=== PATIENT | male | born 1955 | race Caucasian/White ===

== ENCOUNTER 2017-08-06 15:02 | Inpatient (IN) | payer MEDICAID ==
[2017-08-06] MEDS ORDERED: Lidocaine 1% 20 ML MDV INJECT ONE (15:15)
--- NOTE | 2017-08-06 15:17 | EDM.PDOC ---
ED HPI GENERAL MEDICAL PROBLEM - General Stated Complaint: ABCESS ON BUTT Time Seen by Provider: 08/06/17 15:15 Source of Information: Reports: Patient History Limitations: Reports: No Limitations - History of Present Illness INITIAL COMMENTS - FREE TEXT/NARRATIVE: HISTORY AND PHYSICAL: History of present illness: Patient is a 61-year-old male who presents to the emergency room with complaints of an abscess to the left gluteal. He states he has noticed this for about a week and has seen a provider in [place]. At the initial visit they tried to drain the abscess site, which he states they "were unable to get the cyst". He was admitted overnight and put on IV antibiotics. He was discharged the next day with oral antibiotics. Today he went to a walk-in clinic as the site was more painful, they referred him to our emergency department for further care. On getting changed into a gown, he bent down and opened the abscess which is now draining bloody fluid. Review of systems: As per history of present illness and below otherwise all systems reviewed and negative. Past medical history: As per history of present illness and as reviewed below otherwise noncontributory. Surgical history: As per history of present illness and as reviewed below otherwise noncontributory. Social history: No reported history of drug or alcohol abuse. Family history: As per history of present illness and as reviewed below otherwise noncontributory. Physical exam: Gen.: Well-developed and well-nourished 61-year-old male. Alert and oriented. Appears nontoxic and in no acute distress. HEENT: Atraumatic, normocephalic, pupils reactive, negative for conjunctival pallor or scleral icterus, mucous membranes moist, throat clear, neck supple, nontender, trachea midline. Lungs: Clear to auscultation, breath sounds equal bilaterally, chest nontender. Heart: S1S2, regular, negative for clicks, rubs, or JVD. Abdomen: Soft, nondistended, nontender. Negative for masses or hepatosplenomegaly. Negative for costovertebral tenderness. Pelvis: Stable nontender. Genitourinary: Deferred. Rectal: Deferred. Skin: Abscess noted to medial lower left gluteal. There is an area approximately 2 cm its covered with Steri-Strips, patient reports that is where they did the initial I&D. There is an open area of skin approximately 4 fingerbreadths from the rectum which is draining serosanguineous fluid. There is erythema noted, firm to touch, indurated -nonfluctuant. Extremities: Atraumatic, negative for cords or calf pain. Neurovascular unremarkable. Neuro: Awake, alert, oriented. Cranial nerves II through XII unremarkable. Cerebellum unremarkable. Motor and sensory unremarkable throughout. Exam nonfocal. Diagnostics: CBC, CMP, blood cultures Therapeutics: IV fluid, Toradol Impression: Cellulitis with induration vs abscess post I&D Plan: Admit as an inpatient per Dr Santiago Definitive disposition and diagnosis as appropriate pending reevaluation and review of above. Duration: Day(s): Location: Reports: Other (Glute) Left Perineal Area Pain Score (Numeric/FACES): 0 - Related Data Allergies Allergy/AdvReac Type Severity Reaction Status Date / Time No Known Allergies Allergy Verified 08/06/17 15:42 Home Meds: Home Meds Sulfamethoxazole/Trimethoprim [Bactrim Ds Tablet] 1 each PO BID 8 Days #16 tablet 08/08/17 [Rx] ED ROS GENERAL - Review of Systems Review Of Systems: ROS reveals no pertinent complaints other than HPI. ED EXAM, SKIN/RASH Exam: See Below (See dictation) Course - Vital Signs Last Recorded V/S: Last Vital Signs Temp 97.3 F 08/08/17 12:00 Pulse 69 08/08/17 12:00 Resp 18 08/08/17 12:00 BP 120/70 08/08/17 12:00 Pulse Ox 99 08/08/17 12:00 - Orders/Labs/Meds Labs: Laboratory Tests 08/06/17 08/06/17 Range/Units 15:30 15:30 WBC 8.70 (4.0-11.0) K/uL RBC 5.00 (4.50-5.90) M/uL Hgb 15.9 (13.0-17.0) g/dL Hct 47.2 (38.0-50.0) % MCV 94.4 (80.0-98.0) fL MCH 31.8 (27.0-32.0) pg MCHC 33.7 (31.0-37.0) g/dL RDW Std Deviation 46.4 (28.0-62.0) fl RDW Coeff of Lawanda 13 (11.0-15.0) % Plt Count 169 (150-400) K/uL MPV 9.90 (7.40-12.00) fL Neut % (Auto) 77.3 (48.0-80.0) % Lymph % (Auto) 13.4 L (16.0-40.0) % [place] % (Auto) 8.4 (0.0-15.0) % Eos % (Auto) 0.7 (0.0-7.0) % Baso % (Auto) 0.2 (0.0-1.5) % Neut # (Auto) 6.7 H (1.4-5.7) K/uL Lymph # (Auto) 1.2 (0.6-2.4) K/uL [place] # (Auto) 0.7 (0.0-0.8) K/uL Eos # (Auto) 0.1 (0.0-0.7) K/uL Baso # (Auto) 0.0 (0.0-0.1) K/uL Nucleated RBC % 0.0 /100WBC Nucleated RBCs # 0 K/uL Sodium 137 (136-146) mmol/L Potassium 4.4 (3.5-5.1) mmol/L Chloride 107 (98-110) mmol/L Carbon Dioxide 22 (21-31) mmol/L BUN 10 (6.0-23.0) mg/dL Creatinine 0.8 (0.6-1.5) mg/dL Est Cr Clr Drug Dosing 98.28 mL/min Estimated GFR (MDRD) > 60.0 ml/min Glucose 74 (60-110) mg/dL Calcium 9.2 (8.8-10.8) mg/dL Total Bilirubin 0.6 (0.1-1.5) mg/dL AST 17 (5-40) IU/L ALT 11 (8-54) IU/L Alkaline Phosphatase 59 (40-150) Total Protein 7.2 (6.0-8.0) g/dL Albumin 4.1 (3.4-4.8) g/dL Globulin 3.1 (2.0-3.5) g/dL Albumin/Globulin Ratio 1.3 (1.3-2.8) Meds: Medications Discontinued Medications Generic Name Dose Route Start Last Admin Trade Name Freq PRN Reason Stop Dose Admin Bupivacaine HCl Confirm 08/07/17 16:39 Sensorcaine-Mpf 0.5% Administered 08/07/17 16:40 Dose 10 ml .ROUTE .STK-MED ONE Bupivacaine HCl Confirm 08/07/17 18:11 Sensorcaine-Mpf 0.5% Administered 08/07/17 18:12 Dose 10 ml .ROUTE .STK-MED ONE Ephedrine Sulfate Confirm 08/07/17 17:11 Ephedrine Sulfate Administered 08/07/17 17:12 Dose 50 mg .ROUTE .STK-MED ONE Fentanyl 50 mcg 08/07/17 11:14 Sublimaze IVPUSH 08/08/17 11:14 Q5M PRN Pain (severe 7-10) Fentanyl Confirm 08/07/17 16:07 Sublimaze Administered 08/07/17 16:08 Dose 250 mcg .ROUTE .STK-MED ONE Glycopyrrolate Confirm 08/07/17 17:22 Administered 08/07/17 17:23 Dose 1 mg .ROUTE .STK-MED ONE Sodium Chloride 1,000 mls @ 125 mls/hr 08/06/17 15:29 08/06/17 15:45 Normal Saline IV 08/06/17 23:28 125 mls/hr STAT ONE Administration Ceftriaxone Sodium/Dextrose 2 50 mls @ 100 mls/hr 08/06/17 19:00 08/07/17 18: 53 gm/ Premix IV 100 mls/hr Q24H [facility] Administration Vancomycin HCl 1 gm/ Sodium 250 mls @ 166 mls/hr 08/06/17 20:00 08/08/17 13: 41 Chloride IV Not Given Q8H [facility] Sodium Chloride 1,000 mls @ 125 mls/hr 08/07/17 16:15 08/08/17 04:00 Normal Saline IV 125 mls/hr ASDIRECTED [facility] Administration Iopamidol 100 ml 08/06/17 19:11 Isovue-370 (76%) IV 08/06/17 19:12 .STK-MED ONE Ketorolac Tromethamine 30 mg 08/06/17 15:29 08/06/17 16:45 Toradol IVPUSH 08/06/17 15:30 30 mg ONETIME ONE Administration Lidocaine Confirm 08/07/17 16:07 Xylocaine-Mpf 2% Administered 08/07/17 16:08 Dose 5 ml .ROUTE .STK-MED ONE Lidocaine HCl 20 ml 08/06/17 15:15 08/06/17 16:47 Xylocaine 1% INJECT 08/06/17 15:16 Not Given ONETIME ONE Midazolam HCl Confirm 08/07/17 16:07 Versed 1 Mg/Ml Administered 08/07/17 16:08 Dose 2 mg .ROUTE .STK-MED ONE Ondansetron HCl Confirm 08/07/17 16:07 Zofran Administered 08/07/17 16:08 Dose 4 mg .ROUTE .STK-MED ONE Propofol Confirm 08/07/17 16:07 Diprivan 20 Ml Administered 08/07/17 16:08 Dose 200 mg .ROUTE .STK-MED ONE Rocuronium [place] Confirm 08/07/17 16:07 Zemuron Administered 08/07/17 16:08 Dose 100 mg .ROUTE .STK-MED ONE Succinylcholine Chloride Confirm 08/07/17 16:07 Succinylcholine In Ns Pf Administered 08/07/17 16:08 Dose 200 mg .ROUTE .STK-MED ONE Vancomycin HCl 1 dose 08/06/17 18:15 Pharmacy To Dose - Vancomycin .XX [facility]IRECTED [facility] Dep[facility] - Departure Time of Disposition: 18:00 Disposition: Admitted As Inpatient 65 Clinical Impression: Cellulitis Qualifiers: Site of cellulitis: buttock Qualified Code(s): L03.317 - Cellulitis of buttock - Discharge Information
[2017-08-06] MEDS ORDERED: Ketorolac 30 MG/ML SDV IVPUSH ONE (15:29)
[2017-08-06] MEDS ORDERED: Sodium Chloride 0.9% 1,000 ML IV ONE (15:29)
[2017-08-06 16:14] LABS: CHLORIDE,CL 107 mmol/L (98-110); SODIUM,NA 137 mmol/L (136-146)
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
[2017-08-06] MEDS: cefTRIAXone 2 GM in Premix Bag 1 BAG IV SCH (18:43)
[2017-08-06] MEDS ORDERED: Iopamidol 755 Mg/ML 100 ML Bottle IV ONE (19:11)
[2017-08-07 06:22] LABS: CHLORIDE,CL 112 mmol/L (98-110); SODIUM,NA 141 mmol/L (136-146)
--- NOTE | 2017-08-07 09:21 | PCM.PN ---
- General Info Date of Service: 08/07/17 Admission Dx/Problem (Free Text): Admission Diagnosis/Problem Admission Diagnosis/Problem Cellulitis and abscess of buttock Subjective Update: No overnight events. Patient has mild pain and tenderness at site but pain is controlled without medication. No fever, chills, nausea, vomiting, abdominal pain, diarrhea or bloody stool. Functional Status: Reports: Pain Controlled, Tolerating Diet, Ambulating, Urinating - Review of Systems General: Reports: No Symptoms HEENT: Reports: No Symptoms Pulmonary: Reports: No Symptoms Cardiovascular: Reports: No Symptoms Gastrointestinal: Reports: No Symptoms Genitourinary: Reports: No Symptoms Musculoskeletal: Reports: No Symptoms Skin: Reports: No Symptoms Neurological: Reports: No Symptoms Psychiatric: Reports: No Symptoms - Patient Data Vitals - Most Recent: Last Vital Signs Temp 36.5 C 08/07/17 08:00 Pulse 68 08/07/17 08:00 Resp 20 08/07/17 08:00 BP 122/84 08/07/17 08:00 Pulse Ox 96 08/07/17 08:00 Weight - Most Recent: 72.575 kg I&O - Last 24 Hours: Intake & Output 08/06/17 08/07/17 08/07/17 22:59 06:59 14:59 Intake Total 300 1350 1000 Output Total 950 Balance 158 034 [id number] Lab Results Last 24 Hours: Laboratory Results - last 24 hr 08/07/17 08/07/17 Range/Units 05:25 05:25 WBC 5.47 (4.0-11.0) K/uL RBC 4.55 (4.50-5.90) M/uL Hgb 14.1 (13.0-17.0) g/dL Hct 43.2 (38.0-50.0) % MCV 94.9 (80.0-98.0) fL MCH 31.0 (27.0-32.0) pg MCHC 32.6 (31.0-37.0) g/dL RDW Std Deviation 47.3 (28.0-62.0) fl RDW Coeff of Lawanda 14 (11.0-15.0) % Plt Count 153 (150-400) K/uL MPV 10.00 (7.40-12.00) fL Neut % (Auto) 51.7 (48.0-80.0) % Lymph % (Auto) 33.3 (16.0-40.0) % [place] % (Auto) 10.8 (0.0-15.0) % Eos % (Auto) 3.7 (0.0-7.0) % Baso % (Auto) 0.5 (0.0-1.5) % Neut # (Auto) 2.8 (1.4-5.7) K/uL Lymph # (Auto) 1.8 (0.6-2.4) K/uL [place] # (Auto) 0.6 (0.0-0.8) K/uL Eos # (Auto) 0.2 (0.0-0.7) K/uL Baso # (Auto) 0.0 (0.0-0.1) K/uL Nucleated RBC % 0.0 /100WBC Nucleated RBCs # 0 K/uL Sodium 141 (136-146) mmol/L Potassium 4.5 (3.5-5.1) mmol/L Chloride 112 H (98-110) mmol/L Carbon Dioxide 24 (21-31) mmol/L BUN 10 (6.0-23.0) mg/dL Creatinine 0.7 (0.6-1.5) mg/dL Est Cr Clr Drug Dosing 112.32 mL/min Estimated GFR (MDRD) > 60.0 ml/min Glucose 70 (60-110) mg/dL Calcium 8.0 L (8.8-10.8) mg/dL Total Bilirubin 0.4 (0.1-1.5) mg/dL AST 16 (5-40) IU/L ALT 10 (8-54) IU/L Alkaline Phosphatase 40 (40-150) Total Protein 5.6 L (6.0-8.0) g/dL Albumin 3.1 L (3.4-4.8) g/dL Globulin 2.5 (2.0-3.5) g/dL Albumin/Globulin Ratio 1.2 L (1.3-2.8) Med Orders - Current: Current Medications Ceftriaxone Sodium/Dextrose 2 (gm/ Premix) 50 mls @ 100 mls/hr IV Q24H [facility] Last Admin: 08/06/17 18:43 Dose: 100 mls/hr Vancomycin HCl 1 gm/ Sodium (Chloride) 250 mls @ 166 mls/hr IV Q8H [facility] Last Admin: 08/07/17 04:07 Dose: 166 mls/hr Vancomycin HCl (Pharmacy To Dose - Vancomycin) 1 dose .XX ASDIRECTED [facility] Discontinued Medications Sodium Chloride (Normal Saline) 1,000 mls @ 125 mls/hr IV STAT ONE Stop: 08/06/17 23:28 Last Admin: 08/06/17 15:45 Dose: 125 mls/hr Ketorolac Tromethamine (Toradol) 30 mg IVPUSH ONETIME ONE Stop: 08/06/17 15:30 Last Admin: 08/06/17 16:45 Dose: 30 mg Lidocaine HCl (Xylocaine 1%) 20 ml INJECT ONETIME ONE Stop: 08/06/17 15:16 Last Admin: 08/06/17 16:47 Dose: Not Given - Exam General: Alert, Oriented, Cooperative, No Acute Distress HEENT: Pupils Equal, Pupils Reactive Neck: Supple, No JVD Lungs: Clear to Auscultation, Normal Respiratory Effort Cardiovascular: Regular Rate, Regular Rhythm GI/Abdominal Exam: Normal Bowel Sounds, Soft, Non-Tender, No Distention Extremities: Normal Inspection, Normal Capillary Refill Peripheral Pulses: 2+: Dorsalis Pedis (L), Dorsalis Pedis (R) Skin: Warm, Dry, Intact, Other Neurological: No New Focal Deficit Psy/Mental Status: Alert, Normal Affect, Normal Mood - Problem List Review Problem List Initiated/Reviewed/Updated: Yes - My Orders Last 24 Hours: My Active Orders 08/06/17 18:15 Vancomycin Pharmacy to Dose [Pharmacy to Dose - Vancomycin] 1 dose .XX ASDIRECTED 08/06/17 19:00 cefTRIAXone [Rocephin in Dextrose,Iso-Osm 2 GM/50 ML] 2 gm Premix Bag 1 bag IV Q24H 08/06/17 19:11 Pelvis w Cont [CT] Stat 08/06/17 20:00 Vancomycin [Vancocin] 1 gm Sodium Chloride 0.9% [Normal Saline] 250 ml IV Q8H 08/07/17 09:17 Consult to Physician [CONS] Routine 08/07/17 09:18 Notify Provider Consults [RC] ASDIRECTED 08/07/17 Breakfast NPO [Nothing Per Oral Diet] [DIET] 08/08/17 05:00 CBC WITH AUTO DIFF [HEME] DAILY CMP [COMPREHENSIVE METABOLIC PN,CMP] [CHEM] DAILY 08/09/17 05:00 CBC WITH AUTO DIFF [HEME] DAILY CMP [COMPREHENSIVE METABOLIC PN,CMP] [CHEM] DAILY 08/10/17 05:00 CBC WITH AUTO DIFF [HEME] DAILY CMP [COMPREHENSIVE METABOLIC PN,CMP] [CHEM] DAILY 08/11/17 05:00 CMP [COMPREHENSIVE METABOLIC PN,CMP] [CHEM] DAILY - Plan Plan:: 61 year old with no pmh admitted for Cellulitis with Abscess formation of the right buttock. Had I&D at ED in [facility] 3 days ago and was discharged with Augmentin but failed therapy 1. Cellulitis, with abscess formation -vitals stable, labs wnl -CT reveals multilobulated abscess -on Rocephin and Vancomycin Plan: -f/u blood cultures & wound culture -continue Rocephin and Vancomycin -consult general surgery
[2017-08-07] MEDS ORDERED: fentaNYL 100 MCG/2 ML SDV IVPUSH PRN (11:14)
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
[2017-08-07] MEDS ORDERED: Lidocaine 2% 5 ML SDV ONE (16:07)
[2017-08-07] MEDS ORDERED: Ondansetron 4 MG/2 ML SDV ONE (16:07)
[2017-08-07] MEDS ORDERED: Midazolam 1 MG/ML 2 ML SDV ONE (16:07)
[2017-08-07] MEDS ORDERED: Rocuronium 10 MG/ML 10 ML Syringe ONE (16:07)
[2017-08-07] MEDS ORDERED: Propofol 200 MG/20 ML SDV ONE (16:07)
[2017-08-07] MEDS ORDERED: fentaNYL 250 MCG/5 ML SDV ONE (16:07)
[2017-08-07] MEDS ORDERED: Succinylcholine/Normal Saline 200 MG/10 ML Syringe ONE (16:07)
[2017-08-07] MEDS: Sodium Chloride 0.9% 1,000 ML IV SCH ×2 (16:15→18:16)
[2017-08-07] MEDS ORDERED: Bupivacaine 0.5% 10 ML SDV ONE ×2 (16:39→18:11)
[2017-08-07] MEDS ORDERED: ePHEDrine 50 MG/ML SDV ONE (17:11)
--- NOTE | 2017-08-07 17:17 | CT ---
EXAM DATE: 08/06/17 PATIENT'S AGE: 61 Patient: CLARICE ISSA Facility: [place], [place] Site . Site : 1955 Study: CT Pelvis [id number] 8:15:47 PM Ordering Physician: Jack Melo Final Report: Indication: Left buttock abscess Technique: A pelvic CT with intravenous contrast. Coronal and sagittal reformats were reviewed. Comparison: None available Findings: There are several small adjacent fluid attenuation structures/collections in the inferomedial left gluteal subcutaneous fat, the largest component measures approximately 1.6 x 1.0 centimeters, with surrounding enhancing soft tissue thickening, consistent with a multi lobulated abscess or several small adjacent abscesses. The prostate is enlarged. No discrete bladder abnormality is seen. Scattered sigmoid diverticula are noted without diverticulitis. There is no free fluid or free air within the pelvis. Atherosclerotic changes are noted. No suspicious or acute osseous abnormalities are seen. There are degenerative changes in the lower lumbar spine and mild degenerative changes in the right hip. Impression: A lobulated abscess, versus several small adjacent abscesses, in the left inferomedial gluteal subcutaneous fat. Dictated by Nash Lemons MD @ 08/06/2017 8:47:59 PM Dictated by: Nash Lemons MD @ 08/06/2017 20:48:05 (Electronic Signature) Report Signed by Proxy. [facility]
--- NOTE | 2017-08-07 18:23 | PCM.OPNOTE ---
- General Post-Op/Procedure Note Date of Surgery/Procedure: 08/07/17 Operative Procedure(s): Left buttock abscess Findings: 5 x 3 x 0.5 cm abscess on left medial buttock skin Pre Op Diagnosis: Abscess Post-Op Diagnosis: Buttock abscess Anesthesia Technique: General ET Tube Primary Surgeon: Padmini Marti EBL in mLs: 10 Condition: Fair Free Text/Narrative:: Intake & Output 08/07/17 08/07/17 08/07/17 06:59 14:59 22:59 Intake Total 1350 1275 1000 Output Total 950 Balance 400 1275 1000
--- NOTE | 2017-08-07 18:25 | PCM.POSTAN ---
POST ANESTHESIA ASSESSMENT - MENTAL STATUS Mental Status: Alert, Oriented - RESPIRATORY Respiratory Status: Respiratory Rate WNL, Airway Patent, O2 Saturation Stable - CARDIOVASCULAR CV Status: Pulse Rate WNL, Blood Pressure Stable - GASTROINTESTINAL GI Status: No Symptoms - POST OP HYDRATION Hydration Status: Adequate & Stable
[2017-08-07] MEDS: cefTRIAXone 2 GM in Premix Bag 1 BAG IV SCH (18:53)
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
--- NOTE | 2017-08-08 03:46 | OR ---
SURGEON: TIANA GRAY MD DATE OF PROCEDURE: PREOPERATIVE DIAGNOSIS: Left gluteal abscess. POSTOPERATIVE DIAGNOSIS: Left gluteal abscess. PROCEDURE PERFORMED: Incision and drainage of left gluteal abscess. ANESTHESIA: General endotracheal anesthesia. FLUIDS: See Anesthesia record. ESTIMATED BLOOD LOSS: 10 mL. FINDINGS: 5 x 3 x 0.5 cm abscess on the left medial buttock skin. COMPLICATIONS: None. INDICATIONS: The patient is a 61-year-old male who presented with a several week history of erythema, pain, and swelling of the left buttock. The patient has had an infection similar to this in the past which he treated at home. He presented to an outside hospital where an I and D was performed. Despite this, the infection continued to get worse. He was transferred here for further cares. He is admitted to the Medicine Service and a CT of the pelvis was performed. This showed a multiloculated abscess in the left gluteal fold. On exam, the patient has a fluctuant mass. It is exquisitely tender to touch. The decision was made to proceed to the operating room to perform an incision and drainage of this left gluteal abscess as well as an exam under anesthesia to ensure that this is not a perianal abscess. The patient and I discussed the procedure, expected perioperative course, as well as the risks including bleeding, infection, or damage to surrounding structures. The patient verbalized understanding and wishes to proceed. PROCEDURE IN DETAIL: The patient was brought to the OR and placed on the OR table in supine position. A time-out was completed verifying the patient's name, age, date of , allergies, and the procedure to be performed. General endotracheal anesthesia was induced. The patient was then flipped into the prone position. The buttocks were prepped and draped in the usual standard fashion. Upon inspection, the patient had a well-healed previous incision and drainage site on the left medial buttocks. There was an area of fluctuance just inferior to this. An 11 blade was used to open up the previous incision and a large amount of purulence was expressed. This was sent for Gram stain as well as anaerobic and aerobic cultures. I excised a 1 x 5 cm piece of skin to create an elliptical incision over this area. The abscess cavity itself measured 5 x 3 x 0.5 cm in size. All loculations were broken using blunt dissection. I then took a fistula probe and attempted to probe along the medial aspect of the wound to look for any tracking towards the anus. None was noted. Hydrogen peroxide was then instilled into the wound and an anoscope was placed within the anus. No bubbles were noted within the anal canal to suggest a perianal fistula. I then changed gloves and irrigated the wound copiously with normal saline. The wound was then packed with vaginal packing that was soaked in normal saline. This was then covered by dry 4 x 4 fluffs and secured with Medipore tape. The patient tolerated procedure well and was taken to the PACU in stable condition. APRIL DURAN /[id number]
[2017-08-08] MEDS: Sodium Chloride 0.9% 1,000 ML IV SCH (04:00)
[2017-08-08 06:17] LABS: CHLORIDE,CL 109 mmol/L (98-110); SODIUM,NA 138 mmol/L (136-146)
--- NOTE | 2017-08-08 12:11 | PCM.DCSUM1 ---
Discharge Summary - Hospital Course Free Text/Narrative:: 61 yo male admitted 08/06/17 for cellulitus of left buttock with abscess formation. He was treated with Rocephin and Vancomycin. CT revealed multilobulated abscess. Dr. Marti from general surgery was consulted. She performed I&D on 08/07/17. Patient tolerated procedure and had no complications. Patient was given wound care instructions and was cleared for discharge by surgery on 08/08/17 and f/u was scheduled. Patient was ambulatory, tolerating po intake, pain free and afebrile with stable vitals therefore patient was discharged back to his home. Patient admitted to not having any medical care for over 10-20 years therefore f/u to establish care with PCP was arranged. He was discharged home on Bactrim DS BID for 8 days to equal total 10 days of therapy for cellulitis. - Discharge Data Discharge Date: 08/08/17 Discharge Disposition: Home, Self-Care 01 Condition: Good - Patient Summary/Data Operative Procedure(s) Performed: Left buttock abscess Consults: Consultations 08/07/17 09:17 Consult to Physician [CONS] Routine - Patient Instructions Diet: Regular Diet as Tolerated Activity: As Tolerated, Rest and Relax Today Wound/Incision, Other: - Discharge Plan Prescriptions/Med Rec: Sulfamethoxazole/Trimethoprim [Bactrim Ds Tablet] 1 each PO BID 8 Days #16 tablet Home Medications: Home Meds Sulfamethoxazole/Trimethoprim [Bactrim Ds Tablet] 1 each PO BID 8 Days #16 tablet 08/08/17 [Rx] Forms: ED Department Discharge Referrals: PCP,None [Primary Care Provider] - - Discharge Summary/Plan Comment DC Time >30 min.: No - Review of Systems General: Reports: No Symptoms HEENT: Reports: No Symptoms Pulmonary: Reports: No Symptoms Cardiovascular: Reports: No Symptoms Gastrointestinal: Reports: No Symptoms Genitourinary: Reports: No Symptoms Musculoskeletal: Reports: No Symptoms Skin: Reports: No Symptoms Neurological: Reports: No Symptoms Psychiatric: Reports: No Symptoms - Patient Data Vitals - Most Recent: Last Vital Signs Temp 36.3 C 08/08/17 12:00 Pulse 69 08/08/17 12:00 Resp 18 08/08/17 12:00 BP 120/70 08/08/17 12:00 Pulse Ox 99 08/08/17 12:00 Weight - Most Recent: 72.575 kg I&O - Last 24 hours: Intake & Output 08/07/17 08/08/17 08/08/17 22:59 06:59 14:59 Intake Total 1250 2100 Output Total 1650 Balance 1250 450 Lab Results - Last 24 hrs: Laboratory Results - last 24 hr 08/08/17 08/08/17 Range/Units 05:35 05:35 WBC 5.46 (4.0-11.0) K/uL RBC 4.36 L (4.50-5.90) M/uL Hgb 13.4 (13.0-17.0) g/dL Hct 41.4 (38.0-50.0) % MCV 95.0 (80.0-98.0) fL MCH 30.7 (27.0-32.0) pg MCHC 32.4 (31.0-37.0) g/dL RDW Std Deviation 46.0 (28.0-62.0) fl RDW Coeff of Lawanda 13 (11.0-15.0) % Plt Count 152 (150-400) K/uL MPV 9.70 (7.40-12.00) fL Neut % (Auto) 54.6 (48.0-80.0) % Lymph % (Auto) 30.6 (16.0-40.0) % [place] % (Auto) 10.8 (0.0-15.0) % Eos % (Auto) 3.1 (0.0-7.0) % Baso % (Auto) 0.9 (0.0-1.5) % Neut # (Auto) 3.0 (1.4-5.7) K/uL Lymph # (Auto) 1.7 (0.6-2.4) K/uL [place] # (Auto) 0.6 (0.0-0.8) K/uL Eos # (Auto) 0.2 (0.0-0.7) K/uL Baso # (Auto) 0.1 (0.0-0.1) K/uL Nucleated RBC % 0.0 /100WBC Nucleated RBCs # 0 K/uL Sodium 138 (136-146) mmol/L Potassium 4.5 (3.5-5.1) mmol/L Chloride 109 (98-110) mmol/L Carbon Dioxide 25 (21-31) mmol/L BUN 10 (6.0-23.0) mg/dL Creatinine 0.7 (0.6-1.5) mg/dL Est Cr Clr Drug Dosing 112.32 mL/min Estimated GFR (MDRD) > 60.0 ml/min Glucose 72 (60-110) mg/dL Calcium 7.9 L (8.8-10.8) mg/dL Total Bilirubin 0.3 (0.1-1.5) mg/dL AST 20 (5-40) IU/L ALT 9 (8-54) IU/L Alkaline Phosphatase 35 L (40-150) Total Protein 5.2 L (6.0-8.0) g/dL Albumin 2.9 L (3.4-4.8) g/dL Globulin 2.3 (2.0-3.5) g/dL Albumin/Globulin Ratio 1.3 (1.3-2.8) CLAUDINE Results - Last 24 hrs: Microbiology 08/07/17 17:15 Gram Stain - Preliminary Buttock, Left Med Orders - Current: Current Medications Ceftriaxone Sodium/Dextrose 2 (gm/ Premix) 50 mls @ 100 mls/hr IV Q24H [facility] Last Admin: 08/07/17 18:53 Dose: 100 mls/hr Vancomycin HCl 1 gm/ Sodium (Chloride) 250 mls @ 166 mls/hr IV Q8H [facility] Last Admin: 08/08/17 04:01 Dose: 166 mls/hr Sodium Chloride (Normal Saline) 1,000 mls @ 125 mls/hr IV ASDIRECTED [facility] Last Admin: 08/08/17 04:00 Dose: 125 mls/hr Vancomycin HCl (Pharmacy To Dose - Vancomycin) 1 dose .XX ASDIRECTED [facility] Discontinued Medications Bupivacaine HCl (Sensorcaine-Mpf 0.5%) Confirm Administered Dose 10 ml .ROUTE .STK-MED ONE Stop: 08/07/17 16:40 Bupivacaine HCl (Sensorcaine-Mpf 0.5%) Confirm Administered Dose 10 ml .ROUTE .STK-MED ONE Stop: 08/07/17 18:12 Ephedrine Sulfate (Ephedrine Sulfate) Confirm Administered Dose 50 mg .ROUTE .STK-MED ONE Stop: 08/07/17 17:12 Fentanyl (Sublimaze) 50 mcg IVPUSH Q5M PRN PRN Reason: Pain (severe 7-10) Stop: 08/08/17 11:14 Fentanyl (Sublimaze) Confirm Administered Dose 250 mcg .ROUTE .STK-MED ONE Stop: 08/07/17 16:08 Glycopyrrolate () Confirm Administered Dose 1 mg .ROUTE .STK-MED ONE Stop: 08/07/17 17:23 Sodium Chloride (Normal Saline) 1,000 mls @ 125 mls/hr IV STAT ONE Stop: 08/06/17 23:28 Last Admin: 08/06/17 15:45 Dose: 125 mls/hr Iopamidol (Isovue-370 (76%)) 100 ml IV .STK-MED ONE Stop: 08/06/17 19:12 Ketorolac Tromethamine (Toradol) 30 mg IVPUSH ONETIME ONE Stop: 08/06/17 15:30 Last Admin: 08/06/17 16:45 Dose: 30 mg Lidocaine (Xylocaine-Mpf 2%) Confirm Administered Dose 5 ml .ROUTE .STK-MED ONE Stop: 08/07/17 16:08 Lidocaine HCl (Xylocaine 1%) 20 ml INJECT ONETIME ONE Stop: 08/06/17 15:16 Last Admin: 08/06/17 16:47 Dose: Not Given Midazolam HCl (Versed 1 Mg/Ml) Confirm Administered Dose 2 mg .ROUTE .STK-MED ONE Stop: 08/07/17 16:08 Ondansetron HCl (Zofran) Confirm Administered Dose 4 mg .ROUTE .STK-MED ONE Stop: 08/07/17 16:08 Propofol (Diprivan 20 Ml) Confirm Administered Dose 200 mg .ROUTE .STK-MED ONE Stop: 08/07/17 16:08 Rocuronium [place] (Zemuron) Confirm Administered Dose 100 mg .ROUTE .STK-MED ONE Stop: 08/07/17 16:08 Succinylcholine Chloride (Succinylcholine In Ns Pf) Confirm Administered Dose 200 mg .ROUTE .STK-MED ONE Stop: 08/07/17 16:08 - Exam General: Reports: Alert, Oriented HEENT: Reports: Pupils Equal, Pupils Reactive Neck: Reports: Supple Lungs: Reports: Clear to Auscultation, Normal Respiratory Effort Cardiovascular: Reports: Regular Rate, Regular Rhythm GI/Abdominal Exam: Normal Bowel Sounds, Soft, Non-Tender Back Exam: Reports: Normal Inspection Extremities: Normal Inspection, Normal Capillary Refill Wound/Incisions: Reports: Healing Well Neurological: Reports: No New Focal Deficit Psy/Mental Status: Reports: Alert, Normal Affect, Normal Mood *Q Meaningful Use (DIS) - VTE *Q VTE Criteria *Q: - Stroke *Q Stroke Criteria *Q: - AMI *Q AMI Criteria *Q:
--- NOTE | 2017-08-09 08:22 | PCM.SN ---
- Free Text/Narrative Note: Patient was seen POD #1. His wound appeared to be clean with some bleeding on removing the dressings. I explained that he should perform wet to dry dressing changes at least once per day. He should take the dressings out take a sitz bath if he can or at least shower pat the incision dry then place the wet to dry dressings in the wound. He can secure them with brief tighter fitting underware. He should return to clinic to see me in 1-2 weeks for a wound check.
== END 2017-08-08 13:15 | disposition home or self-care (01) | DRG 581 ==
LOC: MW.ED 15:02 → MW.MS 17:15
PROVIDERS: ADMIT Family Medicine; ATTEND Family Medicine
PROC: 0J990ZZ Drainage of Buttock Subcutaneous Tissue and Fascia, Open Approach (ICD-10-PCS; principal; 2017-08-08)
DX: L03.317 Cellulitis of buttock (principal); L02.31 Cutaneous abscess of buttock; F17.200 Nicotine dependence, unspecified, uncomplicated; J44.9 Chronic obstructive pulmonary disease, unspecified
CPT/HCPCS: 36415; 80053; 85025; 87040 ×2; 87070; 96361; 96374; 99284; J1885; J7040; 00300; 72193; 72193-26; 80202; 87075; 87205; 93005; J0696; J2250; J2405; J2704; J3010; J3370; J7050; Q9967

== ENCOUNTER 2018-09-04 16:29 | Emergency (ER) | payer MEDICAID, OTHER ==
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
[2018-09-04 17:43] LABS: CHLORIDE,CL 101 mmol/L (98-107); SODIUM,NA 137 mmol/L (136-148)
[2018-09-04] MEDS ORDERED: Lidocaine 1% with EPINEPHrine 1:100,000 20 ML MDV INJECT ONE (18:12)
[2018-09-04] MEDS ORDERED: Iopamidol 755 MG/ML 200 ML Multipack Bottle IVPUSH STA (18:39)
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
--- NOTE | 2018-09-04 19:10 | CT ---
INDICATION: Right gluteal abscess. COMPARISON: CT pelvis August 06, 2017. TECHNIQUE: CT pelvis with intravenous contrast; coronal and sagittal reformats. FINDINGS: A 3.2 x 2.8 x 3 cm contained loculated fluid collection in the perianal location in the right buttock possibly with a fissure in ano on the right. This is relatively new when compared to the previous study. Inflammatory changes identified in the subcutaneous soft tissues of the right buttock. Enlarged prostate gland. Diverticulosis sigmoid colon without any CT evidence of diverticulitis or abscess. No bony pathology. Sacroiliac articulations are unremarkable. The hip joints are normal bilaterally. IMPRESSION: 1. A 3.2 x 2.8 x 3 cm abscess in the right buttock possibly with a fissure in ano. 2. Enlarged prostate gland. 3. Diverticulosis sigmoid colon. Please note that all CT scans at this facility use dose modulation, iterative reconstruction, and/or weight-based dosing when appropriate to reduce radiation dose to as low as reasonably achievable. Dictated by Laila Case MD @ Sep 04 2018 7:03PM Signed by Dr. Laila Case @ Sep 04 2018 7:09PM
--- NOTE | 2018-09-05 11:58 | OR ---
SURGEON: TIANA GRAY MD DATE OF PROCEDURE: 09/04/2018 PREOPERATIVE DIAGNOSIS: Buttock abscess. POSTOPERATIVE DIAGNOSIS: Infected hematoma of the right buttocks. PROCEDURE PERFORMED: Incision and drainage of right buttock abscess. ANESTHESIA: Local. ESTIMATED BLOOD LOSS: 5 mL. FINDINGS: A 3x2x2 cm fluid collection on the right buttock. Fluid appeared to be bloody and clotted consistent with a hematoma. COMPLICATIONS: None. INDICATIONS: The patient is a 62-year-old male who presents to the emergency room with pain and swelling on the right buttocks. CT of the pelvis showed a 3.2 x 2.8 x 3 cm abscess in the right buttock. The patient and I discussed the need to drain this. I explained the procedure as well as the need for dressing changes afterwards. I explained the risks, including bleeding or reinfection. The patient verbalized understanding and wishes to proceed. PROCEDURE IN DETAIL: The patient was met in the ER. He placed himself in a right lateral decubitus position. A time-out was completed verifying his name, age, date of , allergies, and procedure to be performed. The right buttocks were prepped and draped in usual standard fashion. I palpated the area of maximum fluctuance. I anesthetized the area overlying this with 1% lidocaine plain with epinephrine, 10 mL was used. A cruciate incision was made over the area of maximum fluctuance. I immediately encountered bloody fluid and clot. Anaerobic and aerobic cultures were taken of this fluid. I then opened up the remainder of the skin by taking the corners off the cruciate incision. I expressed a large amount of blood and clot from the wound. There was no evidence of any purulence. The wound cavity measured about 3 cm around. The opening that I made over the top of the wound measured 2 cm x 1 cm x 1 cm in size. The wound was then packed with saline soaked 1 inch Nu Gauze and covered with a dry 4 x 4 gauze, which was secured to the patient using tape. The patient tolerated the procedure well with no immediate complications. APRIL DURAN /[id number]
== END 2018-09-04 19:13 | disposition home or self-care (01) ==
LOC: MW.ED 16:29
DX: L03.317 Cellulitis of buttock (principal); S30.0XXA Contusion of lower back and pelvis, initial encounter; X58.XXXA Exposure to other specified factors, initial encounter; F17.210 Nicotine dependence, cigarettes, uncomplicated
CPT/HCPCS: 36415; 72193; 80053; 85025; 87070; 87075; 99284; Q9967